=== PATIENT | male | born 2000 | race Hispanic/Latino ===

== ENCOUNTER 2020-06-19 12:31 | Emergency (ER) | payer OTHER ==
[2020-06-20 15:23] LABS: SARS-CoV-2 MS2 Positive; SARS-CoV-2 N Gene Negative; SARS-CoV-2 S Gene Negative; SARS-CoV-2 orf1ab Negative
== END 2020-06-19 13:08 | disposition home or self-care (01) ==
LOC: ERS 12:31
DX: Z20.828 Contact with and (suspected) exposure to other viral communicable diseases (principal)
CPT/HCPCS: 87635; 99283; U0003

== ENCOUNTER 2021-12-18 16:23 | Emergency (ER) | payer OTHER | END 2021-12-18 16:57 | disposition home or self-care (01) | LOC: ERS 16:23 | DX: S81.012D Laceration without foreign body, left knee, subsequent encounter (principal) ==

== ENCOUNTER 2024-06-17 09:43 | Emergency (ER) | payer SELFPAY ==
[2024-06-17 11:33] LABS: Influenza A by NAA Not Detected (NotDetected); Influenza B by NAA Not Detected (NotDetected); SARS-CoV-2 NAA Rapid Test Not Detected (NotDetected)
== END 2024-06-17 11:57 | disposition home or self-care (01) ==
LOC: ERS 09:43
DX: J02.0 Streptococcal pharyngitis (principal); F17.210 Nicotine dependence, cigarettes, uncomplicated; F17.290 Nicotine dependence, other tobacco product, uncomplicated
CPT/HCPCS: 87430; 99283

== ENCOUNTER 2025-06-02 03:12 | Emergency (ER) | payer SELFPAY ==
[2025-06-02] MEDS ORDERED: Lidocaine 1% w/Epinephrine 1:100K 20 ML VIAL ONE (03:25)
[2025-06-02] MEDS ORDERED: CEFAZOLIN 2 GM VIAL ONE (03:27)
[2025-06-02] MEDS ORDERED: Lidocaine/Transparent Dressing 1 EACH KIT ONE (03:42)
== END 2025-06-02 06:05 | disposition home or self-care (01) ==
LOC: ERS 03:12
DX: S51.812A Laceration without foreign body of left forearm, initial encounter (principal); F10.129 Alcohol abuse with intoxication, unspecified; F17.210 Nicotine dependence, cigarettes, uncomplicated; F17.290 Nicotine dependence, other tobacco product, uncomplicated; W26.0XXA Contact with knife, initial encounter; V48.4XXA Person boarding or alighting a car injured in noncollision transport accident, initial encounter; Y90.9 Presence of alcohol in blood, level not specified
CPT/HCPCS: 12036; 96365; 96375; J2250; J2270

== ENCOUNTER 2025-08-30 03:44 | Emergency (ER) | payer SELFPAY | END 2025-08-30 04:02 | LOC: ERS 03:44 | DX: S00.81XA Abrasion of other part of head, initial encounter (principal); R04.0 Epistaxis; Y04.0XXA Assault by unarmed brawl or fight, initial encounter; Z02.89 Encounter for other administrative examinations | CPT/HCPCS: 99283 ==